=== PATIENT | female | born 1955 | race Caucasian/White ===

== ENCOUNTER 2016-06-22 14:35 | Inpatient (IN) | payer BC ==
[~2016-06-22] VITALS: Ht 162.6 cm; Wt 63.5 kg
--- NOTE | ~2016-06-22 | 2DMMODE ---
[facility] [address] [place] [address] 2 D/M-MODE ECHOCARDIOGRAM Name: FABBY ABAD A Room #: 541-P [facility] IN .R.#: [id number] Admission: 06/22/16 Attend Phys: Frank Nolasco, Discharge: Date of : 53 Date of Service: 06/24/16 1436 Report #: [id number] THIS REPORT FOR: //name// APPROVED REPORT Study performed: 06/24/2016 13:00:52 EXAM: Comprehensive 2D, Doppler, and color-flow Echocardiogram Patient Location: Echo lab Room #: 541 Blood Pressure: 121/86 mmHg HR: 72 bpm Rhythm: NSR Other Information Study Quality: Adequate Indications CVA/TIA Hx: HTN, HLP 2D Dimensions RVDd: 33.76 mm LVEF(%): 60.01 (>50%) IVSd: 8.38 (7-11mm) LVOT Diam: 18.83 (18-24mm) LVDd: 32.56 mm PWd: 6.93 (7-11mm) Ascending Aorta: 29.09 mm LVDs: 22.47 (25-40mm) Aortic Root: 30.91 mm Hamilton's LVEF: 60.01 % Volumes Left Atrial Volume (Systole) Single Plane 4CH: 25.16 mL Single Plane 2CH: 22.91 mL LA ESV Index: 16.00 mL/m2 Aortic Valve AoV Peak Ramana.: 1.38 m/s AO Peak Gr.: 7.60 mmHg LV Max P.79 mmHg LV Max: 1.40 m/s Mitral Valve E/A Ratio: 0.8 MV Decel. Time: 286.44 ms [facility] [place] [place] [address] 2 D/M-MODE ECHOCARDIOGRAM Name: FABBY ABAD Room #: 541-P [facility] IN ..#: [id number] Admission: 06/22/16 Attend Phys: Frank Nolasco, Discharge: Date of : 53 Date of Service: 06/24/16 1436 Report #: [id number] MV E Max Ramana.: 0.74 m/s MV A Ramana.: 0.92 m/s MV PHT: 83.07 ms Pulmonary Valve PV Peak Ramana.: 1.07 m/s PV Peak Gr.: 4.56 mmHg Pulmonary Vein P Vein S: 71.1 m/s P Vein D: 31.9 m/s P Vein A Dur.: 43.5 m/s PVa Duration: 120 Tricuspid Valve TR Peak Ramana.: 1.82 m/s RAP Estimate: 5.00 mmHg TR Peak Gr.: 13.21 mmHg RVSP: 18.00 mmHg Left Ventricle The left ventricle is normal size. There is normal LV segmental wall motion. There is normal left ventricular wall thickness. Left ventricular systolic function is normal. LVEF is 55-60%. Grade II - pseudonormal filling dynamics. Right Ventricle The right ventricle is normal size. The right ventricular systolic function is normal. Atria The left atrium size is normal. Injection of bubbles documented no interatrial shunt. The right atrium size is normal. Aortic Valve The aortic valve is normal in structure. No aortic regurgitation is present. There is no aortic valvular stenosis. Mitral Valve The mitral valve is normal in structure. There is no mitral valve regurgitation noted. Tricuspid Valve The tricuspid valve is normal in structure. There is trace tricuspid regurgitation. The right atrial pressure is estimated at 5 mmHg Estimated PAP is 18mmHg. Pulmonic Valve The pulmonary valve is normal in structure. Trace pulmonic regurgitation. [address] [address] 2 D/M-MODE ECHOCARDIOGRAM Name: FABBY ABAD Room #: 541-P [facility] IN [facility]#: [id number] Admission: 06/22/16 Attend Phys: Frank Nolasco, Discharge: Date of : 53 Date of Service: 06/24/16 1436 Report #: [id number] Great Vessels The aortic root is normal in size. The ascending aorta is normal in size. IVC is normal in size and collapses >50% with inspiration. Pericardium There is no pericardial effusion. <Conclusion> The left ventricle is normal size. LVEF is 55-60%. The right ventricle is normal size. The right ventricular systolic function is normal. The left atrium size is normal. The right atrium size is normal. Injection of bubbles documented no interatrial shunt. The aortic valve is normal in structure. The mitral valve is normal in structure. There is trace tricuspid regurgitation. The right atrial pressure is estimated at 5 mmHg Estimated PAP is 18mmHg. Trace pulmonic regurgitation. <ELECTRONICALLY SIGNED> By: Josh Dumont MD 06/24/16 1436 1436 1436 Josh Dumont MD /INF
--- NOTE | ~2016-06-22 | H ---
[facility] [place] [address] HISTORY AND PHYSICAL Name: FABBY ABAD Heidi Room #: 536-P ADM IN M.R.#: [id number] Admission: 06/22/16 Attend Phys: Frank Nolasco MD Discharge: Date of : 53 Report #: [id number] THIS REPORT FOR: //name// CC: Frank Nolasco DATE OF SERVICE: 06/22/2016 CHIEF COMPLAINT: Mental status changes. HISTORY OF PRESENT ILLNESS: The patient is a 60-year-old female who was brought to the ER by her and family members after they found her confused at 1 p.m. this afternoon. states she had been fine earlier today when ____ came back out, she was confused, asked him questions about things that she already had discussed with him. She is awake and responsive, but very confused on certain historical questions. She last ____ any questions she does not understand. She denies any focal complaints, however. She denied any new problems. There is some question if she has been taking her Effexor regularly. Other than that, she has had no changes in her history. She denies any focal complaints otherwise. PAST MEDICAL HISTORY: Significant for: 1. Hypertension. 2. Hyperlipidemia. 3. Anxiety disorder. ALLERGIES: No known drug allergies. SOCIAL HISTORY: Nonsmoker. He does drink occasional alcohol. No recreational drugs. MEDICATIONS: Simvastatin, lisinopril, and Effexor. REVIEW OF SYSTEMS: CONSTITUTIONAL: No fever or chills. HEENT: No headaches or visual changes. CHEST: No chest pain, tightness in chest, shortness of breath, cough, or sputum production. GASTROINTESTINAL: No nausea, vomiting, diarrhea, or constipation. GENITOURINARY: No burning or frequency. EXTREMITIES: No new joint pains or swelling. SKIN: No rashes or wounds. NEUROLOGIC: No focal weakness or numbness, no headaches, just the confusion. PHYSICAL EXAMINATION: VITAL SIGNS: Blood pressure 156/108, pulse is 75, respiratory rate was 17, O2 sat was 97%. She is afebrile. [facility] [address] [place] [address] HISTORY AND PHYSICAL Name: FABBY ABAD Heidi Room #: 536-P [facility] IN ..#: [id number] Admission: 06/22/16 Attend Phys: Frank Nolasco MD Discharge: Date of : 53 Report #: [id number] GENERAL: She is awake and alert and she is oriented to person and place. She is in no acute distress. She is very pleasant. HEENT: Her mucous membranes are moist. NECK: Supple, without adenopathy, thyromegaly, or bruits. LUNGS: Chest was clear to auscultation. CARDIOVASCULAR: Regular rhythm without murmur. ABDOMEN: Soft, no masses. Normal active bowel sounds. EXTREMITIES: Show no edema. Pulses are intact. NEUROLOGIC: Alert and oriented x 2. Speech is normal. Cranial nerves 2-12 are intact. Her motor is 5/5 bilaterally. Sensory is intact bilaterally. We did not have her walk, but she did walk in. I did a mini-mental status exam and she missed 8/, mostly remote memory type questions and acute memory type questions. She is able draw figures and her math was off. LABORATORY DATA: Her EKG showed a sinus rhythm, rate of 80, no ST segment changes. There is T wave inversion in V2 to V6. Her sodium was 141, potassium was 3.7, chloride is 104, bicarbonate 26, BUN is 14, creatinine 0.9, glucose was 117, calcium 9.0. WBC is 5.4, hemoglobin 13.5, hematocrit 39.3, platelet count 222, 59 segs, 27 lymphs. Urinalysis for drug screen was totally negative and she denies any drugs. Her UA otherwise is also negative except for a specific gravity of less than ____. A CT scan of her head showed no intracranial process, no midline shift, no hemorrhage. Chest x-ray is unremarkable. ASSESSMENT AND PLAN: Acute delirium. I would suspect this is a basilar stroke. This is not seen on CT. We will order an MRI and start her on aspirin. She has not been taking anticoagulants. Continue her lisinopril and her simvastatin. Her pressure has actually come down from initial ER pressure. It is now 128/90. We will follow up on that MRI tonight. No other intervention at this time. By: [id number] Frank Nolasco MD /nt
--- NOTE | ~2016-06-22 | EKG ---
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 : 1955 Requested By: Izabela Petersen Order Number: [id number] MD: Alejandro Mai Measurements Intervals [place] Rate: 80 P: 3 [place]: 144 QRS: 28 QRSD: 75 T: -68 QT: 365 QTc: 421 Interpretive Statements Sinus rhythm Abnormal R-wave progression, early transition Borderline repolarization abnormality No previous ECG available for comparison Electronically Signed On 06-24-2016 8:25:39 CDT by Alejandro Mai [email or web address] <ELECTRONICALLY SIGNED> By: Alejandro Mai MD, [facility] 06/24/16 0825 1448 1448 Alejandro Mai MD, [facility] /EPI
[2016-06-22 14:36] VITALS: BP 156/108
[2016-06-22 14:57] LABS: POC CA IONIZED 4.5 mg/dL (4.5-5.3); POC CREATININE 0.8 mg/dL (0.6-1.3); POC HEMOGLOBIN 13.6 g/dL (12.0-15.0); POC POTASSIUM 3.5 mmol/L (3.5-5.1)
[2016-06-22 15:35] LABS: ABSOLUTE NEUTROPHILS 3.3 thou/uL (1.4-8.2); BASOPHILS 0.5 % (0.0-2.0); CREATININE 0.9 mg/dL (0.6-1.0); EOSINOPHILS 3.6 % (0.0-3.0); HEMATOCRIT 39.3 % (37.0-47.0); HEMOGLOBIN 13.5 gm/dL (12.0-15.0); LYMPHOCYTES 27.6 % (24.0-44.0); MANUAL DIFF NO; MCH 30.7 pg (26.0-34.0); MCHC 34.3 g/dL (28.0-37.0); MCV 89.3 fL (80.0-100.0); MONOCYTES 8.5 % (1.0-8.0); PLATELET COUNT 222 thou/uL (150-400); POLYS 59.8 % (36.0-66.0); POTASSIUM 3.7 mmol/L (3.5-5.1); RDW 12.6 % (10.5-14.5); WBC 5.4 thou/uL (4.0-11.0)
[2016-06-22 16:09] LABS: URINE BILIRUBIN NEGATIVE (Negative); URINE BLOOD NEGATIVE (Negative); URINE COLOR YELLOW; URINE GLUCOSE-RANDOM* NEGATIVE (Negative); URINE KETONES NEGATIVE (Negative); URINE LEUKOCYTES-REFLEX NEGATIVE (Negative); URINE PROTEIN (DIPSTICK) NEGATIVE (Negative); URINE SPECIFIC GRAVITY <= 1.005 (1.003-1.035); URINE UROBILINOGEN 0.2 E.U./dl (0.2-1.0)
[2016-06-22 16:17] LABS: AMP/METHAMP Negative (Negative); BARBITURATES Negative (Negative); BENZODIAZEPINES Negative (Negative); COCAINE Negative (Negative); METHADONE Negative (Negative); OPIATES Negative (Negative); PCP Negative (Negative); THC Negative (Negative)
[2016-06-22] MEDS ORDERED: ZOCOR20 MG PO (17:49)
[2016-06-22] MEDS ORDERED: LISINOPRIL5 MG PO (17:49)
[2016-06-22] MEDS ORDERED: VENLAFAXINE HC150 M1 PO (17:49)
[2016-06-22 17:54] VITALS: BP 145/91
[2016-06-22 18:11] VITALS: BP 140/83
[2016-06-22 19:29] VITALS: BP 133/86
[2016-06-23 03:37] VITALS: BP 150/93
[2016-06-23 07:20] VITALS: BP 130/88
[2016-06-23 15:30] VITALS: BP 123/90
[2016-06-23 19:35] VITALS: BP 114/79
[2016-06-24 03:45] VITALS: BP 123/82
[2016-06-24 07:24] LABS: CHOLESTEROL 192 mg/dL (<200); HDL CHOLESTEROL 67 mg/dL (>40); LDL CHOLESTEROL 97 mg/dL (<100); TC:HDL 2.9 Ratio (Not establshd); TRIGLYCERIDE 144 mg/dL (<150); VLDL 29 mg/dL (<40)
[2016-06-24 07:47] VITALS: BP 121/86
[2016-06-24] MEDS ORDERED: ASPIRIN325 PO (13:07)
[2016-06-24 17:00] VITALS: BP 134/83
[2016-06-24 17:03] VITALS: BP 134/83
== END 2016-06-24 17:49 | disposition home or self-care (01) | DRG 69 ==
LOC: ER 14:35 → 5S 17:33 → EROBS 17:33 → 5S 17:55
PROVIDERS: Emergency Medicine; Family Medicine
DX: G45.9 Transient cerebral ischemic attack, unspecified (principal); R41.82 Altered mental status, unspecified; I10 Essential (primary) hypertension; F41.9 Anxiety disorder, unspecified; E78.5 Hyperlipidemia, unspecified; Z79.899 Other long term (current) drug therapy
CPT/HCPCS: 10086

== ENCOUNTER → 2016-09-03 | Outpatient (CLI) | payer BC ==
[~2016-09-03] MED LIST: ASPIRIN325 PO; LISINOPRIL5 MG PO; VENLAFAXINE HC150 M1 PO; ZOCOR20 MG PO
== END ==
LOC: NUC 07:14
DX: R06.00 Dyspnea, unspecified (principal)

== ENCOUNTER 2018-06-28 22:45 | Emergency (ER) | payer BC ==
[~2018-06-28] VITALS: Ht 162.6 cm; Wt 67.1 kg
[2018-06-28 23:20] LABS: URINE BILIRUBIN NEGATIVE (Negative); URINE BLOOD NEGATIVE (Negative); URINE CLARITY CLEAR; URINE COLOR YELLOW; URINE GLUCOSE-RANDOM* NEGATIVE (Negative); URINE KETONES NEGATIVE (Negative); URINE LEUKOCYTES 1+ (Negative); URINE NITRITE NEGATIVE (Negative); URINE PROTEIN (DIPSTICK) NEGATIVE (Negative); URINE SPECIFIC GRAVITY 1.015 (1.005-1.035); URINE UROBILINOGEN 0.2 E.U./dl (0.2-1.0)
[2018-06-28 23:21] LABS: BASOPHILS 0.7 % (0.0-2.0); EOSINOPHILS 2.3 % (0.0-3.0); HEMATOCRIT 38.2 % (37.0-47.0); LYMPHOCYTES 21.6 % (24.0-44.0); MCH 30.5 pg (26.0-34.0); MCV 89.7 fL (80.0-100.0); MONOCYTES 6.3 % (1.0-8.0); PLATELET COUNT 236 thou/uL (150-400); POLYS 69.1 % (36.0-66.0); RBC 4.26 mil/uL (4.20-5.00); RDW 12.9 % (10.5-14.5); WBC 8.6 thou/uL (4.0-11.0)
[2018-06-28 23:32] LABS: BACTERIA None Seen /HPF (None Seen); CASTS None Seen /LPF (None Seen); CRYSTALS None Seen /LPF (None Seen); MUCUS None Seen strn/LPF (None Seen); SQUAMOUS None Seen /LPF (0-3); URINE RBC None Seen /HPF (0-2); URINE WBC 0-5 Rare /HPF (0-5)
[2018-06-28 23:35] LABS: CALCIUM 9.3 mg/dL (8.5-10.1); CREATININE 1.1 mg/dL (0.6-1.0); POTASSIUM 3.7 mmol/L (3.5-5.1)
[2018-06-28 23:41] LABS: ALBUMIN 4.2 g/dL (3.4-5.0); TOTAL BILIRUBIN 0.3 mg/dL (<0.1-1.0); TOTAL PROTEIN 7.6 g/dL (6.4-8.2)
[2018-06-29] MEDS ORDERED: NORCO 5-325 TA1 EACH PO (01:49)
[2018-06-29] MEDS ORDERED: ZOFRAN ODT4 MG PO (01:49)
[2018-06-29 01:58] VITALS: BP 113/66
== END 2018-06-29 01:58 | disposition home or self-care (01) ==
LOC: ER 22:45
PROVIDERS: Emergency Medicine
DX: R10.13 Epigastric pain (principal); K59.00 Constipation, unspecified; I10 Essential (primary) hypertension; E78.00 Pure hypercholesterolemia, unspecified; I48.91 Unspecified atrial fibrillation; Z79.899 Other long term (current) drug therapy

== ENCOUNTER → 2018-07-03 | Outpatient (CLI) | payer BC ==
[~2018-07-03] MED LIST changes: +NORCO 5-325 TA1 EACH PO; +ZOFRAN ODT4 MG PO
== END ==
LOC: ULTRA 08:36
DX: K80.20 Calculus of gallbladder without cholecystitis without obstruction (principal); K76.89 Other specified diseases of liver

== ENCOUNTER 2018-07-29 05:27 | Day surgery (SDC) | payer BC ==
[~2018-07-29] VITALS: Ht 162.6 cm; Wt 65.8 kg
--- NOTE | ~2018-07-29 | O ---
[facility] [place] [address] OPERATIVE REPORT Name: FABBY ABAD Room #: 150-3 [facility] M.R.#: [id number] Admission: 07/29/18 ������������������ Attend Phys: Gaurang Muñoz MD Discharge: ������������������ Date of : 53 Report #: [id number] THIS REPORT FOR: //name// CC: Frank Muñoz DATE OF SERVICE: 07/29/2018 PREOPERATIVE DIAGNOSIS: Symptomatic cholelithiasis. POSTOPERATIVE DIAGNOSIS: Symptomatic cholelithiasis. OPERATIVE PROCEDURE DONE: Laparoscopic cholecystectomy. OPERATING SURGEON: Gaurang Muñoz MD VETERINARY TECHNOLOGY INSTRUCTOR: Domenic. INDICATIONS FOR PROCEDURE: The patient is a 62-year-old female who presented with complaints of recurrent episodes of right upper quadrant pain that she has been having. Clinical exam and an ultrasound scan that was done showed features of cholelithiasis. The patient was advised laparoscopic cholecystectomy. The patient showed understanding and agreed to proceed. DESCRIPTION OF PROCEDURE: After explaining to the patient in detail an informed consent was obtained. The patient was identified in the preoperative holding area. The patient was transferred to the operating room and was placed in supine position. Sequential compressive devices were placed for DVT prophylaxis. The preoperative antibiotics were given. After induction of anesthesia, the abdomen was prepped and draped in a sterile fashion. Through a right upper quadrant 1 cm incision and using Optiview technique, peritoneal cavity was entered and a pneumoperitoneum was created. Thereafter, under direct vision another 5 mm trocar was placed, through a supraumbilical incision another 5 mm trocar was placed at the same and one in the right lateral subcostal region. On initial inspection, the patient was noted to have a gallbladder that appeared normal. The gallbladder was retracted and the peritoneal reflection along the neck of the gallbladder was gently dissected off. Cystic duct was identified and was isolated from the surrounding structures. Cystic artery was identified and isolated from the surrounding structures. Cystic duct was then double clipped proximally and single clip applied distally and divided. Cystic artery also was then divided in a similar fashion. The gallbladder was gently dissected off the liver bed using hook electrocautery. Absolute hemostasis was achieved. Total saline irrigation was given. The gallbladder was then retrieved using an EndoCatch through the lateral most incision. Incisions were then closed with a 4-0 Monocryl. The lateral incision was then closed with [facility] [address] [place] [address] OPERATIVE REPORT Name: JENNIFFERFABBY [facility] Room #: 150-3 [facility] M.R.#: [id number] Admission: 07/29/18 ������������������ Attend Phys: Gaurang Muñoz MD Discharge: ������������������ Date of : 53 Report #: [id number] Vicryl using a fascial closure device and skin was closed with 4-0 Monocryl. Dermabond was applied. Approximately about 10 mL of lidocaine and Marcaine mixture was injected into all the incisions. The patient was awoken from anesthesia and was transferred to the recovery room in stable condition. ESTIMATED BLOOD LOSS: Minimal. CONDITION OF THE PATIENT: Stable. FLUIDS GIVEN: Per anesthesia notes. SPECIMEN SENT: Gallbladder. COMPLICATIONS: None. ANESTHESIA: General anesthesia. ��������������������������������������������� ���������������������������������������� By: ��������������������������������������������� 1245 1318 Gaurang Muñoz MD /nt
[~2018-07-29 05:27] MED LIST changes: +XARELTO20 MG PO
[2018-07-29 09:45] VITALS: BP 120/80
[2018-07-29 12:48] VITALS: BP 120/80
--- NOTE | 2018-07-31 13:07 | PATH ---
[facility] [address] [place] [address] PATHOLOGY RPT PROCEDURE Name: STEPHANIE ABAD Room #: DEP [facility] M.R.#: [id number] ������������������ Admission: 07/29/18 ������������������ Date of : 53 Discharge: 07/29/18 Report #: [id number] Path Case #: [id number] [facility] Accession Number: [id number] . 01 Material submitted: . gallbladder - GALLBLADDER . 01 Clinical history: . Cholecystitis . 02 Diagnosis: Gallbladder, cholecystectomy: - Mild chronic cholecystitis. - Cholelithiasis. (IUV:pit 07/31/2018) QTP/07/31/2018 . 02 Electronically signed: . Remedios Pruett MD, Pathologist NPI- [id number] . 01 Gross description: . The specimen is received in formalin, labeled "Stephanie Chris, gallbladder". Received is an intact gallbladder measuring 8.0 x 2.5 x 2.5 cm in greatest dimensions displaying a blue-gupta serosal surface. Opening the specimen reveals a velvety, bile-stained mucosa with a gallbladder wall thickness of 0.1 cm. Calculi are present displaying a bright yellow and multifaceted to multinodular appearance, and no masses or lesions are noted grossly. Senior Sales Associate sections, to include the proximal margin, are submitted in cassette A1. (CAA; 07/30/2018) QAC/QAC . 02 Pathologist provided ICD-10: K80.10 . 02 CPT . 264068 Specimen Comment: A courtesy copy of this report has been sent to Specimen Comment: [phone], . Specimen Comment: Report sent to / DR TAYLOR Performed at: [address] [id number] MD Edward Grimaldo MD Phone: [phone] Performed at: [address] [address] PATHOLOGY RPT PROCEDURE Name: STEPHANIE ABAD CHRIS Room #: DEP [facility] Gil.RZhang#: [id number] ������������������ Admission: 07/29/18 ������������������ Date of : 53 Discharge: 07/29/18 Report #: [id number] Path Case #: [id number] [address] [place] [id number] MD Remedios Pruett MD Phone: [phone]
== END 2018-07-29 13:45 | disposition home or self-care (01) ==
LOC: TBA 05:27 → OR 05:27 → TBA 05:28 → OR 06:26
DX: K80.10 Calculus of gallbladder with chronic cholecystitis without obstruction (principal); I10 Essential (primary) hypertension; E78.5 Hyperlipidemia, unspecified; I48.91 Unspecified atrial fibrillation; F32.9 Major depressive disorder, single episode, unspecified; F41.9 Anxiety disorder, unspecified; Z86.73 Personal history of transient ischemic attack (TIA), and cerebral infarction without residual deficits; Z87.442 Personal history of urinary calculi; Z98.890 Other specified postprocedural states; Z79.01 Long term (current) use of anticoagulants; Z79.899 Other long term (current) drug therapy
CPT/HCPCS: 50010; 50101; 50411; 50555; 50558; 51489; 51975; 52265; 52266; 54022; 54118; 55245; 56462; 56525; 56526; 62110; 62900; 70005

== ENCOUNTER → 2018-12-03 | Outpatient (CLI) | payer BC ==
--- NOTE | 2018-12-03 14:48 | 2DMMODE ---
[facility] [email or web address] [address] 2 D/M-MODE ECHOCARDIOGRAM Name: FABBY ABAD [id number] Admission: 12/03/18 Attend Phys: Vik Farley Discharge: Date of : 53 Report #: [id number] THIS REPORT FOR: //name// APPROVED REPORT Study performed: 12/03/2018 13:28:18 EXAM: Comprehensive 2D, Doppler, and color-flow Echocardiogram Patient Location: Echo lab Status: routine BSA: 1.68 HR: 68 bpm BP: 120/80 mmHg Rhythm: NSR Other Information Study Quality: Adequate Indications Atrial Fibrillation Hypertension/HDD 2D Dimensions RVDd: 32.46 mm IVSd: 9.68 (7-11mm) LVOT Diam: 19.56 (18-24mm) LVDd: 32.87 mm PWd: 8.15 (7-11mm) Ascending Ao: 32.21 (22-36mm) LVDs: 24.05 (25-40mm) Aortic Root: 30.60 mm IVC: 10.00 mm Volumes Left Atrial Volume (Systole) Single Plane 4CH: 19.78 mL Single Plane 2CH: 40.92 mL LA ESV Index: 20.00 mL/m2 Aortic Valve AoV Peak Ramana.: 1.26 m/s AO Peak Gr.: 6.30 mmHg LVOT Max P.98 mmHg LVOT Max V: 1.22 m/s STACEY Vmax: 2.93 cm2 Mitral Valve E/A Ratio: 1.0 MV Decel. Time: 272.76 ms [facility] [address] [place] [address] 2 D/M-MODE ECHOCARDIOGRAM Name: FABBY ABAD Room #: REG [facility]#: [id number] Admission: 12/03/18 Attend Phys: Vik Farley Discharge: Date of : 53 Report #: [id number] MV E Max Ramana.: 0.50 m/s MV A Ramana.: 0.52 m/s MV PHT: 79.10 ms IVRT: 106.11 ms Pulmonary Valve PV Peak Ramana.: 0.85 m/s PV Peak Gr.: 2.88 mmHg Pulmonary Vein P Vein S: 0.84 m/s P Vein A: 0.79 m/s P Vein D: 0.50 m/s P Vein A Dur.: 124.6 msec P Vein S/D Ratio: 1.68 Tricuspid Valve TR Peak Ramana.: 2.22 m/s RAP Estimate: 5.00 mmHg TR Peak Gr.: 19.79 mmHg PA Pressure: 25.00 mmHg Left Ventricle The left ventricle is normal size. There is normal left ventricular wall thickness. The left ventricular systolic function is normal. The left ventricular ejection fraction is within the normal range. LVEF is 60-65%. Mild diastolic dysfunction is present (impaired relaxation pattern). Right Ventricle The right ventricle is normal size. The right ventricular systolic function is normal. Atria The left atrium size is normal. The right atrium size is normal. Aortic Valve The aortic valve is normal in structure. No aortic regurgitation is present. There is no aortic valvular stenosis. Mitral Valve The mitral valve is normal in structure. Trace mitral regurgitation. No evidence of mitral valve stenosis. Tricuspid Valve The tricuspid valve is normal in structure. Trace tricuspid regurgitation. PAP is estimated at 25 mmHg. Pulmonic Valve [facility] [address] [place] [address] 2 D/M-MODE ECHOCARDIOGRAM Name: FABBY ABAD [facility] Room #: REG [facility]#: [id number] Admission: 12/03/18 Attend Phys: Vik Farley Discharge: Date of : 53 Report #: [id number] The pulmonary valve is normal in structure. Trace pulmonic regurgitation. Great Vessels The aortic root is normal in size. IVC is normal in size and collapses >50% with inspiration. Pericardium There is no pericardial effusion. <Conclusion> The left ventricle is normal size. There is normal left ventricular wall thickness. The left ventricular systolic function is normal. Mild diastolic dysfunction is present (impaired relaxation pattern). The right ventricle is normal size. The left atrium size is normal. The aortic valve is normal in structure. Trace mitral regurgitation. Trace tricuspid regurgitation. PAP is estimated at 25 mmHg. <ELECTRONICALLY SIGNED> By: Paul Kathleen MD 12/03/18 1448 1448 1448 Paul Kathleen MD /INF
== END ==
LOC: CV 13:23
DX: I48.91 Unspecified atrial fibrillation (principal); I10 Essential (primary) hypertension

== ENCOUNTER 2019-11-08 18:56 | Emergency (ER) | payer OTHER, MEDICARE ==
[~2019-11-08] VITALS: Ht 162.6 cm; Wt 65.8 kg
[2019-11-08 19:36] LABS: BASOPHILS 0.3 % (0.0-2.0); HEMATOCRIT 39.5 % (37.0-47.0); HEMOGLOBIN 13.5 gm/dL (12.0-15.0); LYMPHOCYTES 11.7 % (24.0-44.0); MCH 31.3 pg (26.0-34.0); MCHC 34.2 g/dL (28.0-37.0); MCV 91.6 fL (80.0-100.0); MONOCYTES 4.4 % (1.0-8.0); PLATELET COUNT 230 thou/uL (150-400); POLYS 81.6 % (36.0-66.0); RBC 4.31 mil/uL (4.20-5.00); RDW 13.1 % (10.5-14.5); WBC 8.6 thou/uL (4.0-11.0)
[2019-11-08 19:43] LABS: ANION GAP 12 mmol/L (7-16); BUN 15 mg/dL (7-18); CALCIUM 9.3 mg/dL (8.5-10.1); CHLORIDE 102 mmol/L (98-107); CO2 25 mmol/L (21-32); GLUCOSE 131 mg/dL (74-106); POTASSIUM 3.8 mmol/L (3.5-5.1); SODIUM 139 mmol/L (136-145)
[2019-11-08 19:52] LABS: TROPONIN-I <0.06 ng/mL (<0.06)
[2019-11-08 20:00] LABS: ALBUMIN 4.1 g/dL (3.4-5.0); DIRECT BILIRUBIN 0.1 mg/dL (<0.1-0.2); TOTAL BILIRUBIN 0.3 mg/dL (0.2-1.0); TOTAL PROTEIN 7.3 g/dL (6.4-8.2)
[2019-11-08] MEDS ORDERED: ZOFRAN ODT4 MG PO (21:53)
[2019-11-08] MEDS ORDERED: ULTRAM 50MG TAB50 MG PO (21:53)
[2019-11-08 22:02] VITALS: BP 118/81
--- NOTE | 2019-11-09 07:45 | EKG ---
[facility] [place] [address] ELECTROCARDIOGRAM REPORT Name: BELINDA ABADGONZALES PEREZ Room #: DEP MBlack#: [id number] Admission: 11/08/19 Attend Phys: Discharge: 11/08/19 Date of : 53 Report #: [id number] THIS REPORT FOR: cc: Frank Nolasco MD, Neal A. MD Lundgren,Alejandro Pearce MD [facility] ~ THIS REPORT FOR: //name// 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 : 1955 Requested By: Andrea Trujillo Order Number: [id number] MD: Alejandro Mai Measurements Intervals [place] Rate: 75 P: 50 [place]: 180 QRS: 44 QRSD: 93 T: 9 QT: 398 QTc: 445 Interpretive Statements Sinus rhythm Abnormal R-wave progression, early transition Nonspecific ST segment abnormality Prolonged QT interval Compared to ECG 06/22/2016 14:48:31 QT interval has lengthened Electronically Signed On 11-09-2019 7:45:12 CDT by Alejandro Mai [email or web address] <ELECTRONICALLY SIGNED> By: Alejandro Mai MD, [facility] 11/09/19 0745 11 11 Alejandro Mai MD, [facility] /EPI
== END 2019-11-08 22:03 | disposition home or self-care (01) ==
LOC: ER 18:56
PROVIDERS: Emergency Medicine
DX: R94.5 Abnormal results of liver function studies (principal); R07.89 Other chest pain; R61 Generalized hyperhidrosis; R42 Dizziness and giddiness; I10 Essential (primary) hypertension; E78.00 Pure hypercholesterolemia, unspecified; F32.9 Major depressive disorder, single episode, unspecified; F41.9 Anxiety disorder, unspecified; Z87.442 Personal history of urinary calculi; Z79.899 Other long term (current) drug therapy

== ENCOUNTER → 2019-12-08 | Outpatient (CLI) | payer OTHER, MEDICARE ==
[~2019-12-08] MED LIST changes: +ULTRAM 50MG TAB50 MG PO
== END ==
LOC: SJCVC 14:42
PROVIDERS: ATTEND Internal Medicine Cardiovascular Disease
DX: I48.0 Paroxysmal atrial fibrillation (principal); R94.31 Abnormal electrocardiogram [ECG] [EKG]; I10 Essential (primary) hypertension; E78.5 Hyperlipidemia, unspecified; Z79.899 Other long term (current) drug therapy

== ENCOUNTER → 2021-01-10 | Outpatient (CLI) | payer OTHER | LOC: SJCVC 13:49 | PROVIDERS: ATTEND Internal Medicine Cardiovascular Disease | DX: I48.91 Unspecified atrial fibrillation (principal); I10 Essential (primary) hypertension; G45.9 Transient cerebral ischemic attack, unspecified; F41.9 Anxiety disorder, unspecified; E78.5 Hyperlipidemia, unspecified; R41.3 Other amnesia; Z86.16 Personal history of COVID-19; Z72.89 Other problems related to lifestyle; Z79.899 Other long term (current) drug therapy ==

== ENCOUNTER → 2021-02-08 | Outpatient (CLI) | payer OTHER | LOC: RAD 12:34 | PROVIDERS: ATTEND Family Medicine | DX: Z12.31 Encounter for screening mammogram for malignant neoplasm of breast (principal) ==

== ENCOUNTER → 2021-02-08 | Outpatient (CLI) | payer OTHER | LOC: CAT 12:19 | PROVIDERS: ATTEND Family Medicine | DX: Z13.6 Encounter for screening for cardiovascular disorders (principal) ==

== ENCOUNTER → 2021-03-05 | Outpatient (CLI) | payer OTHER | LOC: NUC 10:17 | PROVIDERS: ATTEND Family Medicine | DX: M81.0 Age-related osteoporosis without current pathological fracture (principal); Z78.0 Asymptomatic menopausal state ==